=== PATIENT | male | born 1960 | race Caucasian/White ===

== ENCOUNTER 2017-03-14 08:00 | Emergency (ER) | payer SELFPAY ==
[~2017-03-14] VITALS: Ht 165.1 cm; Wt 68.5 kg
[2017-03-14 08:39] LABS: CALCIUM 8.8 mg/dL (8.5-10.1); CARBON DIOXIDE 29.4 mmol/L (21-32); CREATININE SERUM 1.6 mg/dL (0.7-1.3); POTASSIUM SERUM 4.4 mmol/L (3.5-5.1)
[2017-03-14 08:57] LABS: AMPHETAMINE QUAL UR POSITIVE (NEG <=1000)
[2017-03-14 09:08] LABS: RED CELL DISTRIBUTION WIDTH 12.3 % (11.5-14.5)
[2017-03-14 09:09] LABS: BASOPHIL % 2.5 % (0-2); PLATELET COUNT 123 x10^3mcL (130-400)
[2017-03-14 09:26] VITALS: BP 139/90
== END 2017-03-14 09:26 | disposition home or self-care (01) ==
LOC: ED 08:00
PROVIDERS: Emergency Medicine
DX: R20.2 Paresthesia of skin (principal); R73.9 Hyperglycemia, unspecified; N28.9 Disorder of kidney and ureter, unspecified; T43.625A Adverse effect of amphetamines, initial encounter; Y92.89 Other specified places as the place of occurrence of the external cause
CPT/HCPCS: 36415; Q0092

== ENCOUNTER 2017-04-15 08:20 | Inpatient (IN) | payer MEDICAID ==
[~2017-04-15] VITALS: Ht 165.1 cm; Wt 68.0 kg
--- NOTE | 2017-04-15 08:33 | NUR ---
COMFORT MEASURES IMPLEMENTED. CALL LIGHT W/IN REACH. SEE ED ASSESSMENT FOR NOTES. DR. CARDOSO AT BEDSIDE FOR MSE. WILL CONTINUE TO MONITOR.
--- NOTE | 2017-04-15 08:49 | NUR ---
PT IN ROUTE TO CT SCAN.
[2017-04-15 09:03] LABS: BASOPHIL % 0.5 % (0-2); PLATELET COUNT 133 x10^3mcL (130-400); RED CELL DISTRIBUTION WIDTH 13.2 % (11.5-14.5)
[2017-04-15 09:12] LABS: CALCIUM 8.7 mg/dL (8.5-10.1); CARBON DIOXIDE 28.3 mmol/L (21-32); CREATININE SERUM 1.4 mg/dL (0.7-1.3); POTASSIUM SERUM 4.7 mmol/L (3.5-5.1)
[2017-04-15 09:17] LABS: ALBUMIN 3.8 g/dL (3.4-5.0); BILIRUBIN TOTAL 0.9 mg/dL (0.20-1.00); TOTAL PROTEIN, SERUM 7.3 g/dL (6.4-8.2)
--- NOTE | 2017-04-15 09:20 | NUR ---
PT AMBULATED TO RESTROOM W/STEADY GAIT.
[2017-04-15 09:42] LABS: microscopic required? NO
[2017-04-15 10:10] LABS: UA SPECIFIC GRAVITY 1.015 (1.005-1.035); urine erythrocyte NEGATIVE (NEGATIVE)
--- NOTE | 2017-04-15 10:31 | NUR ---
PT RESTING ON GURNEY IN POSITION OF COMFORT. RESPS E/U. NO S/S OF DISTRESS NOTED. CALL LIGHT W/IN REACH. WILL CONTINUE TO MONITOR.
[2017-04-15 10:44] LABS: AMPHETAMINE QUAL UR NONE DETECTED (NEG <=1000)
--- NOTE | 2017-04-15 11:18 | NUR ---
REPORT GIVEN TO CRISTY CASSIDY FOR CONTINUATION OF CARE PRIMARY RN.
[2017-04-15] MEDS ORDERED: METFORMIN HYDR500 M1 (11:20)
[2017-04-15] MEDS ORDERED: LISINOPRIL2.5 MG (11:21)
[2017-04-15 11:42] LABS: T3 TOTAL 0.86 ng/mL
--- NOTE | 2017-04-15 11:50 | NUR ---
RECEIVED PT FROM ER. ADMISSION ASSESSMENT AND HISTORY IS DONE. PT DENIES PAIN THIS TIME. NO NUMBNESS TO LT ARM AND FACE NOTED THIS TIME. SAFTEY PRECAUTIONS ON. WILL MONITOR.
[2017-04-15 12:03] LABS: FREE T4 1.03 ng/dL (0.76-1.46); FREE THYROXINE INDEX 2.9 ug/dL (1.4-4.5)
[2017-04-15 12:33] VITALS: BP 123/81
--- NOTE | 2017-04-15 12:58 | NUR ---
AND RESIDENTS DID ROUNDS. EXPLAINED THE PLAN OF CARE.
[2017-04-15 14:21] VITALS: BP 114/78
[2017-04-15 16:57] VITALS: BP 106/63
[2017-04-15 17:14] VITALS: Ht 165.1 cm; Wt 68.0 kg
--- NOTE | 2017-04-15 18:58 | NUR ---
PT RESTING IN BED COMFORTABLY. DENIES PAIN. NO NUMBNESS NOTED THIS TIME. REMAINS STABLE. GIVING REPORT TO NEXT SHIFT NURSE.
--- NOTE | 2017-04-15 19:55 | NUR ---
RECEIVED PATIENT IN BED AWAKE, ALERT AND ORIENTED WITH NO SIGN OF ACUTE DISTRESS. BREATHING EASYA ND NONLABOR SATTING AT 98% RA. DENIES NECKPAIN AT THIS TIME. TELE# [id number] NSR ON MONITOR, DENIES CHES DISCOMFORT. IV TO LFA INTACT AND INFUSINGW ELL. WILL CONTINUE TO MONITOR. CALL LIGHT WITHIN REACH.
[2017-04-15 21:08] VITALS: BP 116/74
--- NOTE | 2017-04-16 | NUR ---
SLEEPING THIS TIME BREATHING EASYA ND NONLABOR. WILL CONTINUE TO MONITOR.
[2017-04-16 04:35] VITALS: BP 109/65
--- NOTE | 2017-04-16 05:02 | NUR ---
SLEPT AT LONG INTERVALS DENIES PAIN AND DISCOMFORT THE ENTIRE SHIFT. ALL NEEDS ATTENDED.
--- NOTE | 2017-04-16 07:45 | NUR ---
RECEIVED PT IN BED. AWAKE,ALERT AND ORIENTED X3. ASSESSED AND DOCUMENTED. DENIES PAIN THIS TIME. SAFTEY PRECAUTIONS ON. WILL MONITOR.
[2017-04-16 09:13] VITALS: BP 134/80
[2017-04-16 09:21] LABS: BASOPHIL % 0.6 % (0-2); PLATELET COUNT 131 x10^3mcL (130-400); RED CELL DISTRIBUTION WIDTH 13.5 % (11.5-14.5)
[2017-04-16 09:29] LABS: CALCIUM 8.2 mg/dL (8.5-10.1); CARBON DIOXIDE 26.2 mmol/L (21-32); CREATININE SERUM 1.4 mg/dL (0.7-1.3); MAGNESIUM 1.7 mg/dL (1.8-2.4); PHOSPHOROUS 3.1 mg/dL (2.5-4.9); POTASSIUM SERUM 4.7 mmol/L (3.5-5.1)
--- NOTE | 2017-04-16 09:45 | NUR ---
AND RESIDENTS DID ROUNDS. EXPLAINED THE PLAN OF CARE AND ANSWERED ALL PT'S QUESTIONS.
[2017-04-16] MEDS ORDERED: MOT800 PO (12:23)
[2017-04-16 14:20] VITALS: BP 114/72
[2017-04-16 14:54] VITALS: BP 114/72
--- NOTE | 2017-04-16 16:00 | NUR ---
DISCHARGE INSTRUCTIONS EXPLAINED TO THE PT AND PT SIGNED. PRESCRIPTION SENT TO PT PHARMACY BY DOCTOR. PT DENIES ANY PAIN. LOCKSTITCH LINING SETTER WHEELED PT DOWN TO LOBBY. PT'S CAME AT THE LOBBY. STABLE. PT DC HOME. PB SIGNED AND SENT WITH PT.
== END 2017-04-16 15:58 | disposition home or self-care (01) | DRG 203 ==
LOC: ED 08:20 → DU 10:56
PROVIDERS: Emergency Medicine; ADMIT Student in an Organized Health Care Education/Training Program
DX: M94.0 Chondrocostal junction syndrome [Tietze] (principal); N17.0 Acute kidney failure with tubular necrosis; E11.65 Type 2 diabetes mellitus with hyperglycemia; I10 Essential (primary) hypertension; F15.10 Other stimulant abuse, uncomplicated; Z68.25 Body mass index [BMI] 25.0-25.9, adult; Z79.84 Long term (current) use of oral hypoglycemic drugs
CPT/HCPCS: 83880; 84439; J7030; Q0092

== ENCOUNTER 2017-06-30 19:38 | Emergency (ER) | payer SELFPAY ==
[~2017-06-30] VITALS: Ht 162.6 cm; Wt 73.5 kg
[~2017-06-30 19:38] MED LIST: LISINOPRIL2.5 MG; METFORMIN HYDR500 M1; MOT800 PO
[2017-06-30 20:19] VITALS: Ht 162.6 cm; Wt 73.5 kg
[2017-06-30 21:48] VITALS: BP 134/94
== END 2017-06-30 21:49 | disposition home or self-care (01) ==
LOC: ED 19:38
DX: G62.9 Polyneuropathy, unspecified (principal); E11.9 Type 2 diabetes mellitus without complications; I10 Essential (primary) hypertension; Z79.84 Long term (current) use of oral hypoglycemic drugs
CPT/HCPCS: 90715

== ENCOUNTER 2017-07-25 15:39 | Emergency (ER) | payer BC ==
[~2017-07-25] VITALS: Ht 162.6 cm; Wt 69.4 kg
[2017-07-25 15:46] VITALS: BP 135/84; Ht 162.6 cm; Wt 69.4 kg
== END 2017-07-25 17:48 | disposition left against medical advice (07) ==
LOC: ED 15:39
DX: Z53.21 Procedure and treatment not carried out due to patient leaving prior to being seen by health care provider (principal)

== ENCOUNTER 2017-08-08 08:57 | Emergency (ER) | payer BC ==
[~2017-08-08] VITALS: Ht 162.6 cm; Wt 70.8 kg
[2017-08-08 09:02] VITALS: Ht 162.6 cm; Wt 70.8 kg
[2017-08-08 11:00] VITALS: BP 135/89
== END 2017-08-08 11:15 | disposition home or self-care (01) ==
LOC: ED 08:57
DX: R07.89 Other chest pain (principal); E13.42 Other specified diabetes mellitus with diabetic polyneuropathy; I10 Essential (primary) hypertension; R11.2 Nausea with vomiting, unspecified

== ENCOUNTER 2017-09-13 12:20 | Emergency (ER) | payer BC ==
[~2017-09-13] VITALS: Ht 162.6 cm; Wt 66.7 kg
[2017-09-13 12:34] VITALS: Ht 162.6 cm; Wt 66.7 kg
[2017-09-13 15:54] VITALS: BP 149/88
== END 2017-09-13 15:54 | disposition home or self-care (01) ==
LOC: ED 12:20
DX: S93.401A Sprain of unspecified ligament of right ankle, initial encounter (principal); S00.83XA Contusion of other part of head, initial encounter; I10 Essential (primary) hypertension; E11.9 Type 2 diabetes mellitus without complications; J45.909 Unspecified asthma, uncomplicated; V89.2XXA Person injured in unspecified motor-vehicle accident, traffic, initial encounter; Y93.89 Activity, other specified; Y92.89 Other specified places as the place of occurrence of the external cause; Y99.8 Other external cause status
CPT/HCPCS: Q0092

== ENCOUNTER 2017-12-19 07:39 | Emergency (ER) | payer BC ==
[~2017-12-19] VITALS: Ht 162.6 cm; Wt 73.0 kg
[2017-12-19 07:42] VITALS: Ht 162.6 cm; Wt 73.0 kg
[2017-12-19 08:13] LABS: CALCIUM 8.9 mg/dL (8.5-10.1); CARBON DIOXIDE 23.4 mmol/L (21-32); CREATININE SERUM 1.6 mg/dL (0.7-1.3); POTASSIUM SERUM 4.9 mmol/L (3.5-5.1)
[2017-12-19 08:17] LABS: ALBUMIN 3.7 g/dL (3.4-5.0); BILIRUBIN TOTAL 0.45 mg/dL (0.20-1.00); TOTAL PROTEIN, SERUM 6.9 g/dL (6.4-8.2)
[2017-12-19 08:27] LABS: BASOPHIL % 0.6 % (0-2); RED CELL DISTRIBUTION WIDTH 14.1 % (11.5-14.5)
[2017-12-19 08:28] LABS: PLATELET COUNT 115 x10^3mcL (130-400)
[2017-12-19 09:51] LABS: AMPHETAMINE QUAL UR NONE DETECTED (See below)
[2017-12-19 10:22] VITALS: BP 138/88
== END 2017-12-19 10:42 | disposition home or self-care (01) ==
LOC: ED 07:39
PROVIDERS: Emergency Medicine
DX: E11.22 Type 2 diabetes mellitus with diabetic chronic kidney disease (principal); I12.9 Hypertensive chronic kidney disease with stage 1 through stage 4 chronic kidney disease, or unspecified chronic kidney disease; N18.9 Chronic kidney disease, unspecified; E11.65 Type 2 diabetes mellitus with hyperglycemia; R07.89 Other chest pain; E11.40 Type 2 diabetes mellitus with diabetic neuropathy, unspecified
CPT/HCPCS: 36600; 83880; J7030; Q0092

== ENCOUNTER 2018-01-12 19:24 | Inpatient (IN) | payer BC ==
[~2018-01-12] VITALS: Ht 165.1 cm; Wt 73.2 kg
[2018-01-12 19:32] VITALS: Ht 165.1 cm; Wt 73.2 kg
[2018-01-12 20:48] LABS: CALCIUM 8.2 mg/dL (8.5-10.1); CREATININE SERUM 1.6 mg/dL (0.7-1.3); POTASSIUM SERUM 4.6 mmol/L (3.5-5.1)
[2018-01-12 20:49] LABS: BASOPHIL % 0.5 % (0-2); PLATELET COUNT 133 x10^3mcL (130-400); RED CELL DISTRIBUTION WIDTH 13.6 % (11.5-14.5)
[2018-01-12 20:53] LABS: ALBUMIN 3.5 g/dL (3.4-5.0); BILIRUBIN TOTAL 0.55 mg/dL (0.20-1.00); TOTAL PROTEIN, SERUM 6.7 g/dL (6.4-8.2)
[2018-01-12] MEDS ORDERED: METFORMIN HYD1000 M2 PO (22:28)
[2018-01-12] MEDS ORDERED: ZES10 PO (22:28)
[2018-01-12 23:00] VITALS: BP 137/91
[2018-01-12 23:30] LABS: CHOLESTEROL/HDL RATIO 3.5; MAGNESIUM 1.8 mg/dL (1.8-2.4); PHOSPHOROUS 3.6 mg/dL (2.5-4.9)
[2018-01-12 23:38] LABS: FREE T4 1.05 ng/dL (0.76-1.46); FREE THYROXINE INDEX 2.5 ug/dL (1.4-4.5); T4(THYROXINE) 6.8 ug/dL (4.7-13.3)
[2018-01-13 00:02] LABS: microscopic required? NO
[2018-01-13 00:12] LABS: UA SPECIFIC GRAVITY 1.015 (1.005-1.035); urine erythrocyte NEGATIVE (NEGATIVE)
[2018-01-13 00:57] LABS: T3 TOTAL 0.77 ng/mL
[2018-01-13 06:36] VITALS: BP 110/73
[2018-01-13 08:38] LABS: BASOPHIL % 1.3 % (0-2); PLATELET COUNT 130 x10^3mcL (130-400); RED CELL DISTRIBUTION WIDTH 13.5 % (11.5-14.5)
[2018-01-13 09:18] VITALS: BP 124/79
[2018-01-13 09:23] LABS: CALCIUM 8.2 mg/dL (8.5-10.1); CARBON DIOXIDE 27.6 mmol/L (21-32); CREATININE SERUM 1.5 mg/dL (0.7-1.3); MAGNESIUM 1.9 mg/dL (1.8-2.4); POTASSIUM SERUM 4.4 mmol/L (3.5-5.1)
[2018-01-13 10:56] VITALS: BP 116/69
[2018-01-13 12:30] VITALS: BP 116/76
== END 2018-01-13 15:14 | disposition home or self-care (01) | DRG 205 ==
LOC: ED 19:24 → DU 22:05
PROVIDERS: Emergency Medicine; Family Medicine
DX: M94.0 Chondrocostal junction syndrome [Tietze] (principal); N17.0 Acute kidney failure with tubular necrosis; E87.1 Hypo-osmolality and hyponatremia; I24.9 Acute ischemic heart disease, unspecified; J45.909 Unspecified asthma, uncomplicated; E11.40 Type 2 diabetes mellitus with diabetic neuropathy, unspecified; I10 Essential (primary) hypertension; F14.90 Cocaine use, unspecified, uncomplicated; F12.90 Cannabis use, unspecified, uncomplicated; F15.90 Other stimulant use, unspecified, uncomplicated; E78.00 Pure hypercholesterolemia, unspecified; E11.65 Type 2 diabetes mellitus with hyperglycemia; K21.9 Gastro-esophageal reflux disease without esophagitis; Z79.84 Long term (current) use of oral hypoglycemic drugs; Z72.0 Tobacco use
CPT/HCPCS: 83880; 84439; J7030; Q0092

== ENCOUNTER 2019-05-15 11:03 | Emergency (ER) | payer SELFPAY ==
[~2019-05-15] VITALS: Ht 162.6 cm; Wt 71.2 kg
[~2019-05-15 11:03] MED LIST changes: +METFORMIN HYD1000 M2 PO; +ZES10 PO
[2019-05-15 11:12] VITALS: BP 123/64; Ht 162.6 cm; Wt 71.2 kg
== END 2019-05-15 12:50 | disposition home or self-care (01) ==
LOC: ED 11:03
DX: S61.214A Laceration without foreign body of right ring finger without damage to nail, initial encounter (principal); J45.909 Unspecified asthma, uncomplicated; I10 Essential (primary) hypertension; E11.9 Type 2 diabetes mellitus without complications; W26.0XXA Contact with knife, initial encounter; Y93.89 Activity, other specified; Y92.89 Other specified places as the place of occurrence of the external cause; Y99.8 Other external cause status